=== PATIENT | female | born 1940 ===

== ENCOUNTER 2022-03-06 08:08 | Outpatient (CLI) | payer MEDICARE ==
[~2022-03-06 08:08] MED LIST: Iopamidol 370 76% 100 ML VIAL ONE
== END 2022-03-06 08:09 | disposition home or self-care (01) ==
LOC: ULT 08:08
PROVIDERS: ATTEND Internal Medicine Gastroenterology
DX: K21.9 Gastro-esophageal reflux disease without esophagitis (principal); K44.9 Diaphragmatic hernia without obstruction or gangrene; K82.8 Other specified diseases of gallbladder; R10.13 Epigastric pain; N28.1 Cyst of kidney, acquired; K59.00 Constipation, unspecified; K76.0 Fatty (change of) liver, not elsewhere classified; Z90.710 Acquired absence of both cervix and uterus
CPT/HCPCS: 74178; 76705; 82565; Q9967